=== PATIENT | male | born 1940 | race Asian ===

== ENCOUNTER → 2018-07-03 | Outpatient (CLI) | payer MEDICARE | END | disposition home or self-care (01) | LOC: CFH 13:17 | PROVIDERS: ATTEND Family Medicine | DX: J84.10 Pulmonary fibrosis, unspecified (principal); R91.1 Solitary pulmonary nodule | CPT/HCPCS: 71250 ==

== ENCOUNTER 2018-12-05 08:06 | Outpatient (CLI) | payer MEDICARE ==
[~2018-12-05 08:06] MED LIST: REGADENOSON 0.4 MG/5 ML SYRINGE ONE
== END 2018-12-05 23:59 | disposition home or self-care (01) ==
LOC: CFH 08:06 → CVU 23:59
PROVIDERS: ATTEND Internal Medicine Cardiovascular Disease
DX: I08.8 Other rheumatic multiple valve diseases (principal); E78.5 Hyperlipidemia, unspecified; E11.9 Type 2 diabetes mellitus without complications; R06.02 Shortness of breath; R07.89 Other chest pain; Z87.891 Personal history of nicotine dependence
CPT/HCPCS: 0399T; 78452; 93017; 93306; A9502; J2785

== ENCOUNTER 2020-01-01 07:20 | Emergency (ER) | payer MEDICARE ==
[~2020-01-01] VITALS: Ht 170.2 cm; Wt 65.0 kg
[2020-01-01 07:53] LABS: BASOPHILS # (AUTO) 0.02 x10^3/uL (0-0.1); BASOPHILS % (AUTO) 0 % (0-1); EOSINOPHILS % (AUTO) 0 % (1-7); LYMPHOCYTES # (AUTO) 0.86 x10^3/uL (1-3.4); LYMPHOCYTES % (AUTO) 7 % (22-44); MD NO; MEAN CORPUSCULAR HEMOGLOBIN 32.6 pg (27.5-34.5); MEAN CORPUSCULAR HGB CONC 32.8 g/dL (33.2-36.2); MEAN CORPUSCULAR VOLUME 99.4 fL (81-97); MEAN PLATELET VOLUME 7.8 fL (7.4-10.4); MONOCYTES % (AUTO) 8 % (2-9); NEUTROPHILS # (AUTO) 11.49 x10^3/uL (1.8-6.8); NEUTROPHILS % (AUTO) 86 % (42-75); PLATELET COUNT 215 x10^3/uL (130-400); RED BLOOD COUNT 4.21 x10^6/uL (4.38-5.82)
[2020-01-01] MEDS ORDERED: LIDOCAINE 2%,20 ML JEL.PF.APP MM ONE ×2 (08:00→08:22)
[2020-01-01] MEDS ORDERED: SODIUM CHLORIDE FLUSH 10ML SYR IVF ONE (08:00)
[2020-01-01 08:05] LABS: ALBUMIN 3.5 g/dL (3.4-5.0); ANION GAP 6 mmol/L (5-15); CALCIUM 9.2 mg/dL (8.5-10.1); CHLORIDE 102 mmol/L (98-107); CREATININE 0.89 mg/dL (0.7-1.3)
[2020-01-01 08:11] LABS: MICROSCOPIC INDICATED
--- NOTE | 2020-01-01 08:12 | NUR ---
pt moved to room 19 at this time.
--- NOTE | 2020-01-01 08:20 | NUR ---
FIRST CONTACT WITH PT. PT STATED "MY BLOOD IS COMING DOWN. THIS AM, I GOT UP, I HAVE HAD TO GO TO THE BR VERY OFTEN AND THERE WAS BLOOD COMING DOWN" BEGAN THIS AM. PT'S AOX4. RESPS EVEN AND UNLABORED. PT DENIES ANY PAIN/N/V/D. BP/SPO2 MONITORS IN PLACE. CALL LIGHT WITHIN REACH.
--- NOTE | 2020-01-01 08:30 | NUR ---
uroject applied per emar. pt tolerated well.
[2020-01-01] MEDS ORDERED: CEFTRIAXONE PMX 1GM/50ML 50 ML IV ONE (10:00)
[2020-01-01 10:09] VITALS: BP 170/99
--- NOTE | 2020-01-01 10:09 | NUR ---
BLADDER IRRIGATION DONE AT BEDSIDE WITH ZARI PATEL. 1L NS IN AND 1.1L OUT. URINE CLEAR AT THIS TIME. PA NOTIFIED.
[2020-01-01] MEDS ORDERED: CEFTRIAXONE PMX 1GM/50ML 50 ML ONE (10:16)
--- NOTE | 2020-01-01 10:26 | NUR ---
PIV EST ON L AC WITH NO COMPLICATIONS. ABX INFUSING AT THIS TIME. PT TOLERATED WELL. NO BC NEEDED PER PA.
--- NOTE | 2020-01-01 10:57 | NUR ---
RECEIVED BEDSIDE REPORT FROM KAMALJIT PATEL. ASSUMING CARE AT THIS TIME. 2ND LITER BLADDER IRRIGATION COMPLETE, WILL ASSESS DRAINAGE WHEN DRAINAGE COMPLETE.
--- NOTE | 2020-01-01 11:12 | NUR ---
EARLY DRAINAGE LIGHT PINK IN COLOR WITHOUT CLOTS.
--- NOTE | 2020-01-01 11:56 | NUR ---
INDWELLING EARLY REMOVED PRIOR TO DC.
== END 2020-01-01 11:58 | disposition home or self-care (01) ==
LOC: ED 08:46
DX: N30.01 Acute cystitis with hematuria (principal); I10 Essential (primary) hypertension; E11.9 Type 2 diabetes mellitus without complications; M10.9 Gout, unspecified
CPT/HCPCS: 36415; 51700; 74176; 80048; 81001; 82040; 85025; 87077; 87086; 96365; 99284; J0696; 87186

== ENCOUNTER → 2020-01-21 | Outpatient (CLI) | payer MEDICARE | END | disposition home or self-care (01) | LOC: CVU 13:33 | PROVIDERS: ATTEND Internal Medicine Cardiovascular Disease | DX: I06.1 Rheumatic aortic insufficiency (principal) | CPT/HCPCS: 93306 ==

== ENCOUNTER → 2020-09-13 | Outpatient (CLI) | payer MEDICARE ==
[~2020-09-13] MED LIST changes: +AMLO-150 PO; +ASPI81TA45 PO; +ATOR-2 PO; +ATOR10TA9 PO; +CLOP75TA52 PO; +LOSA25TA12 PO; +METF10007 PO; +METF500T17 PO; +OXYB5TAB10 PO; -REGADENOSON 0.4 MG/5 ML SYRINGE ONE
== END | disposition home or self-care (01) ==
LOC: CFH 14:41
PROVIDERS: ATTEND Family Medicine
DX: R60.0 Localized edema (principal)